=== PATIENT | male | born 1985 | race Caucasian/White ===

== ENCOUNTER 2018-06-06 19:17 | Emergency (ER) | payer MEDICAID, OTHER ==
[~2018-06-06] VITALS: Ht 188 cm; Wt 93.0 kg
[2018-06-06 19:33] VITALS: BP 159/69
[2018-06-06] MEDS ORDERED: MUPI22OI30 TOP (20:07)
== END 2018-06-06 20:17 | disposition home or self-care (01) ==
LOC: ER 19:18
DX: T24.201A Burn of second degree of unspecified site of right lower limb, except ankle and foot, initial encounter (principal); Z90.89 Acquired absence of other organs; X19.XXXA Contact with other heat and hot substances, initial encounter; Y93.89 Activity, other specified; Y92.89 Other specified places as the place of occurrence of the external cause; Y99.8 Other external cause status
CPT/HCPCS: 16020; 99282; 99284